=== PATIENT | female | born 1950 | race Caucasian/White ===

== ENCOUNTER 2017-04-20 14:08 | Emergency (ER) | payer MEDICARE, OTHER ==
[2017-04-20 14:49] LABS: HEMOGLOBIN 14.2 gm/dl (12.3-15.3); RED BLOOD COUNT 4.59 M/UL (4.00-5.10); WHITE BLOOD COUNT 7.9 K/UL (4.5-11.0)
[2017-04-20 15:08] LABS: BUN/CREATININE RATIO 25 (0-10)
== END 2017-04-20 18:25 | disposition home or self-care (01) ==
LOC: ER1 14:08
PROVIDERS: Emergency Medicine
DX: N12 Tubulo-interstitial nephritis, not specified as acute or chronic (principal); F17.200 Nicotine dependence, unspecified, uncomplicated
CPT/HCPCS: 36415; 71020; 80053; 81001; 82150; 82550; 82553; 83605; 83690; 83874; 84484; 85025; 85610; 85730; 87040; 87077; 87086; 87186; 93005; 96361; 96365; 96367; 96375; 99284; J0696; J2405; J7030; J7050

== ENCOUNTER 2020-11-29 17:37 | Inpatient (IN) | payer MEDICARE, OTHER ==
[~2020-11-29] VITALS: Ht 167.6 cm; Wt 71.7 kg
[2020-11-29 19:32] LABS: HEMOGLOBIN 13.1 gm/dl (12.3-15.3); RED BLOOD COUNT 4.38 M/UL (4.00-5.10); WHITE BLOOD COUNT 5.7 K/UL (4.5-11.0)
[2020-11-29 19:48] LABS: BUN/CREATININE RATIO 29 (0-10)
[2020-11-29] MEDS ORDERED: ANORO ELLIPTA1 EACH INH (19:57)
[2020-11-29] MEDS ORDERED: XANAX0.5 MG PO (19:57)
[2020-11-29] MEDS ORDERED: FISH OIL 1,0001 EACH PO (19:58)
[2020-11-29] MEDS ORDERED: CITALOPRAM HBR20 MG PO (19:58)
[2020-11-29] MEDS ORDERED: NEURONTIN800 MG PO (19:59)
[2020-11-29] MEDS ORDERED: MOBIC7.5 MG PO (20:00)
[2020-11-29] MEDS ORDERED: OMEPRAZOLE40 MG PO (20:00)
[2020-11-29] MEDS ORDERED: SINGULAIR10 MG PO (20:00)
[2020-11-29] MEDS ORDERED: VENTOLIN HFA 66.7 GM INH (20:01)
[2020-11-29] MEDS ORDERED: VITAMIN D21250 MCG PO (20:01)
[2020-11-29] MEDS ORDERED: ASPIRIN EC81 MG PO (20:02)
[2020-11-30 04:47] LABS: HEMOGLOBIN 12.5 gm/dl (12.3-15.3); RED BLOOD COUNT 4.16 M/UL (4.00-5.10); WHITE BLOOD COUNT 4.4 K/UL (4.5-11.0)
[2020-11-30 05:14] LABS: BUN/CREATININE RATIO 24 (0-10)
[2020-12-01 05:30] LABS: HEMOGLOBIN 12.3 gm/dl (12.3-15.3); RED BLOOD COUNT 4.08 M/UL (4.00-5.10); WHITE BLOOD COUNT 3.4 K/UL (4.5-11.0)
[2020-12-01 05:39] LABS: BUN/CREATININE RATIO 35 (0-10)
[2020-12-01] MEDS ORDERED: DEXAMETHASONE6 MG PO (11:32)
[2020-12-01] MEDS ORDERED: DOXYCYCLINE HY100 MG PO (11:32)
[2020-12-01] MEDS ORDERED: IPRAT-ALBUT 0.5-3 ML INH (11:34)
[2020-12-01] MEDS ORDERED: NICODERM CQ1 EAC1 TD (12:22)
== END 2020-12-01 13:29 | disposition home or self-care (01) | DRG 177 ==
LOC: ER1 17:37 → CDU 21:34 → MED SURG 4 21:34
PROVIDERS: Emergency Medicine; Internal Medicine; ADMIT Internal Medicine
PROC: 8E0ZXY6 Isolation (ICD-10-PCS; principal; 2020-11-29)
PROC: XW033E5 Introduction of Remdesivir Anti-infective into Peripheral Vein, Percutaneous Approach, New Technology Group 5 (ICD-10-PCS; 2020-11-30)
DX: U07.1 COVID-19 (principal); J12.82 Pneumonia due to coronavirus disease 2019; J96.20 Acute and chronic respiratory failure, unspecified whether with hypoxia or hypercapnia; J96.21 Acute and chronic respiratory failure with hypoxia; J44.0 Chronic obstructive pulmonary disease with (acute) lower respiratory infection; Z88.5 Allergy status to narcotic agent; Z87.891 Personal history of nicotine dependence; F41.9 Anxiety disorder, unspecified; G89.29 Other chronic pain; M54.9 Dorsalgia, unspecified
CPT/HCPCS: 36415; 36600; 71045; 80048; 80053; 82550; 82553; 82803; 84484; 85025; 85379; 86140; 93005; 99285; J0456; J1100; J1650; J2543; J7030; J7070

== ENCOUNTER → 2021-01-23 | Outpatient (CLI) | payer MEDICARE, OTHER ==
[~2021-01-23] MED LIST: ANORO ELLIPTA1 EACH INH; ASPIRIN EC81 MG PO; CITALOPRAM HBR20 MG PO; DEXAMETHASONE6 MG PO; DOXYCYCLINE HY100 MG PO; FISH OIL 1,0001 EACH PO; IPRAT-ALBUT 0.5-3 ML INH; MOBIC7.5 MG PO; NEURONTIN800 MG PO; NICODERM CQ1 EAC1 TD; OMEPRAZOLE40 MG PO; SINGULAIR10 MG PO; VENTOLIN HFA 66.7 GM INH; VITAMIN D21250 MCG PO; XANAX0.5 MG PO
== END ==
LOC: KOH-I 10:23
DX: M79.661 Pain in right lower leg (principal)
CPT/HCPCS: 93925

== ENCOUNTER → 2021-03-05 | Outpatient (CLI) | payer MEDICARE, OTHER | LOC: KOH-I 13:32 | DX: M54.6 Pain in thoracic spine (principal); M54.5 Low back pain; M48.54XA Collapsed vertebra, not elsewhere classified, thoracic region, initial encounter for fracture; M47.816 Spondylosis without myelopathy or radiculopathy, lumbar region | CPT/HCPCS: 72070; 72110 ==

== ENCOUNTER → 2022-01-21 | Outpatient (CLI) | payer MEDICARE, OTHER | LOC: KOH-I 10:45 | DX: E04.1 Nontoxic single thyroid nodule (principal) | CPT/HCPCS: 76536 ==

== ENCOUNTER → 2022-06-14 | Outpatient (CLI) | payer MEDICARE, OTHER | LOC: KOH-I 08:45 | DX: M75.41 Impingement syndrome of right shoulder (principal); M25.511 Pain in right shoulder; W01.198A Fall on same level from slipping, tripping and stumbling with subsequent striking against other object, initial encounter | CPT/HCPCS: 73200 ==